=== PATIENT | female | born 1975 | race African-American/Black ===

== ENCOUNTER → 2017-05-09 | Day surgery (SDC) | payer OTHER ==
[2017-05-07 13:35] LABS: BASOPHILS # (AUTO) 0.1 (0.0-0.1); BASOPHILS % 0.9 % (0.0-1.0); EOSINOPHILS # (AUTO) 0.1 (0.0-0.4); EOSINOPHILS % 1.9 % (0.0-6.0); HEMATOCRIT 36.5 % (34.2-44.1); HEMOGLOBIN 11.4 g/dL (12.0-16.0); LYMPHOCYTES # (AUTO) 2.7 (1.0-3.2); LYMPHOCYTES % 38.3 % (18.0-39.1); MEAN CORPUSCULAR HGB CONC 31.2 g/dL (31-35); MEAN CORPUSCULAR VOLUME 86.5 fL (81-99); MONOCYTES # (AUTO) 0.5 (0.2-0.8); MONOCYTES % 7.5 % (4.4-11.3); NEUTROPHILS # (AUTO) 3.6 (2.1-6.9); NEUTROPHILS % 51.3 % (38.7-80.0); PLATELET COUNT 296 x10e3/uL (140-360); RED BLOOD COUNT 4.22 x10e6/uL (3.6-5.1); RED CELL DISTRIBUTION WIDTH 15.5 % (11.7-14.4)
[2017-05-07 13:59] LABS: ANION GAP 12.3 mmol/L (8-16); BLOOD UREA NITROGEN 10 mg/dL (7-26); BUN/CREATININE RATIO 12 (6-25); CARBON DIOXIDE 25 mmol/L (22-29); CHLORIDE 106 mmol/L (98-107); CREATININE, SERUM 0.81 mg/dL (0.57-1.11); EST GLOMERULAR FILTRATION RATE > 60 ML/MIN (60-); GLUCOSE 102 mg/dL (74-118); POTASSIUM 4.3 mmol/L (3.5-5.1); SODIUM 139 mmol/L (136-145)
[~2017-05-09] MED LIST: BELVIQ PO; BUPIVACAINE HCL 0.5% INJ 30 ML VIAL INJ ONE; CHLORHEXIDINE GLUCONATE 4% 120 ML BTL ONE; DEXAMETHASONE SOD PHOS INJ 4 MG/ML VIAL ONE; FENTANYL CITRATE/PF 100MCG/2 ML INJ ONE; GELATIN SPONGE SZ 100 ONE; LIDOCAINE 2% /EPINEPHRINE 20 ML SDV INJ ONE; LIDOCAINE HCL 2% LOCAL INJ 5 ML SDV VIAL INJ ONE; LIDOCAINE JELLY 2% 10ML URO-JET ONE; MEPERIDINE HCL INJ 50 MG/ML INJ ONE; MIDAZOLAM HCL 2 MG/2 ML VIAL ONE; ONDANSETRON HCL INJ 2 MG/ML VIAL ONE; PROPOFOL IV EMULSION 10 MG/ML 20 ML VIAL ONE; SEVOFLURANE INHAL SOLN 250 ML PEN BTL ONE; [UNRECOGNIZED DRUG - OTHER] PO
--- NOTE | 2017-05-09 16:47 | Operative Report ---
DATE OF PROCEDURE: May 09, 2017 PREOPERATIVE DIAGNOSIS: Thrombosed external hemorrhoid and prolapsing internal hemorrhoid. POSTOPERATIVE DIAGNOSIS: OPERATION PERFORMED: Internal and external hemorrhoidectomy. ANESTHESIA: General. COMPLICATIONS: None. ESTIMATED BLOOD LOSS: Minimal. DESCRIPTION OF PROCEDURE: With the patient lying in bed in the lithotomy position under good general anesthesia, the perineum was prepped with Hibiclens solutions and draped in the usual manner. A standard anorectal block was then performed with 1% Xylocaine and 0.25% Marcaine mixed in equal parts. After this was done, examination revealed there was a thrombosed external hemorrhoid at the 6 o'clock position with corresponding internal prolapsing hemorrhoid that extended from about the 5 o'clock to the 7 o'clock position. The rest of the anorectal area appeared to be within normal limits. The base of the hemorrhoid was then ligated with an 0 chromic suture. The external component was then sharply resected with a submucous resection of all of the external component of the surrounding hemorrhoids. After this was done and all the thrombosed tissue was resected, the mucosa was then reapproximated with interrupted sutures of 3-0 chromic. Hemostasis was ascertained. A Gelfoam pack impregnated with Xylocaine was placed. Dressing was applied. The sponge, lap, and needle count was correct. Patient tolerated the procedure well and returned to the recovery room in stable condition. Job#: [id number]
== END | disposition home or self-care (01) ==
LOC: OR 10:30 → EEVIPCON 10:30
PROVIDERS: ATTEND Surgery
DX: K64.5 Perianal venous thrombosis (principal); K64.8 Other hemorrhoids
CPT/HCPCS: 36415; 46255; 80048; 81025; 85025; J1100; J2001 ×2; J2175; J2250; J2405